=== PATIENT | male | born 1985 | race African-American/Black ===

== ENCOUNTER 2024-05-29 15:50 | Emergency (ER) | payer OTHER ==
[~2024-05-29] VITALS: Ht 185.4 cm; Wt 88.0 kg
[2024-05-29 15:55] VITALS: BP 111/71; PULSE 77; RESP 18; TEMP 98.1; O2SAT 100
== END 2024-05-29 19:49 | disposition left against medical advice (07) ==
LOC: ER 15:50
DX: G40.909 Epilepsy, unspecified, not intractable, without status epilepticus (principal); R51.9 Headache, unspecified
CPT/HCPCS: 99284

== ENCOUNTER 2024-06-07 08:22 | Emergency (ER) | payer OTHER ==
[~2024-06-07] VITALS: Ht 182.9 cm; Wt 91.0 kg
[2024-06-07 08:23] VITALS: O2SAT 100
[2024-06-07 08:49] VITALS: BP 113/78; PULSE 84; RESP 17; TEMP 36.83628; O2SAT 97
[2024-06-07 09:19] LABS: BASOPHILS % 0.8 % (0.0-2.0); EOSINOPHILS % 0.8 % (0.0-5.0); HEMATOCRIT. 49.6 % (42.0-52.0); HEMOGLOBIN. 16.4 g/dL (14.0-18.0); LYMPHOCYTES % 19.6 % (20.0-50.0); MEAN CORPUSCULAR HEMOGLOBIN 31.3 pg (28.0-32.0); MEAN CORPUSCULAR VOLUME 94.8 fL (80.0-94.0); MEAN PLATELET VOLUME 8.7 fl (7.4-10.4); MONOCYTES % 5.7 % (2.0-8.0); NEUTROPHILS % 73.1 % (40.0-76.0); PLATELET 249 x1000/uL (130-400); RED BLOOD CELL COUNT 5.23 mill/uL (4.7-6.1); RED CELL DISTRIBUTION WIDTH 13.9 % (11.6-14.6); WHITE BLOOD COUNT 10.2 x1000/uL (4.5-11.0)
[2024-06-07 09:34] LABS: CHLORIDE 106 mEq/L (98-107); POTASSIUM 4.3 mEq/L (3.5-5.1); SODIUM 139 mEq/L (136-145)
[2024-06-07 09:35] LABS: CALCIUM 10.4 mg/dL (8.7-10.4); CARBON DIOXIDE 24 mEq/L (21-32)
[2024-06-07 09:40] LABS: CREATININE 1.2 mg/dL (0.6-1.3); GLUCOSE 74 mg/dL (70-105)
[2024-06-07 09:41] LABS: PHENYTOIN 10.7 ug/mL (10-20)
[2024-06-07 09:49] LABS: ETHANOL BLOOD < 10 mg/dL (<10); UREA NITROGEN BLOOD < 5 mg/dL (9-23)
== END 2024-06-07 10:41 | disposition left against medical advice (07) ==
LOC: ER 08:22
DX: R56.9 Unspecified convulsions (principal)
CPT/HCPCS: 36415; 80048; 80185; 80320; 85025; 99283; G0480